=== PATIENT | male | born 1995 | race Caucasian/White ===

== ENCOUNTER 2022-11-06 19:57 | Emergency (ER) | payer SELFPAY ==
[2022-11-06 20:03] VITALS: BP 128/77; PULSE 68; RESP 18; TEMP 36.6; O2SAT 98; BMI 30.6
--- NOTE | 2022-11-06 20:12 | ED.GENADUL1 ---
HPI - General Adult General Chief complaint: Head Injury Stated complaint: head injury Time Seen by Provider: 11/06/22 20:06 Source: patient and family Mode of arrival: walk-in Limitations: no limitations Related Data Home Medications Medication Instructions Recorded Confirmed No Known Home Medications 11/06/22 11/06/22 Allergies Allergy/AdvReac Type Severity Reaction Status Date / Time No Known Drug Allergies Allergy Verified 11/06/22 20:07 Exam Constitutional Vital Signs - 24 hr 11/06/22 20:03 Temperature 98 F Pulse Rate [Monitor] 68 Respiratory Rate 18 Blood Pressure [Right Arm] 128/77 H Pulse Oximetry 98 Oxygen Delivery Method Room Air Course Vital Signs Vital signs: Vital Signs Temperature 98 F 11/06/22 20:03 Pulse Rate 68 11/06/22 20:03 Respiratory Rate 18 11/06/22 20:03 Blood Pressure 128/77 H 11/06/22 20:03 Pulse Oximetry 98 11/06/22 20:03 Oxygen Delivery Method Room Air 11/06/22 20:03 Temperature 98 F 11/06/22 20:03 Pulse Rate 68 11/06/22 20:03 Respiratory Rate 18 11/06/22 20:03 Blood Pressure 128/77 H 11/06/22 20:03 Pulse Oximetry 98 11/06/22 20:03 Oxygen Delivery Method Room Air 11/06/22 20:03 Discharge Plan Discharge Chief Complaint: Head Injury Prescriptions / Home Meds: No Action No Known Home Medications Referrals: Physician,Non-Staff, [Primary Care Provider] - 1 week
--- NOTE | 2022-11-06 20:44 | ED_ITS ---
HPI - Head Injury General Chief complaint: Head Injury Stated complaint: head injury Time Seen by Provider: 11/06/22 20:06 Source: patient and family Mode of arrival: walk-in Limitations: no limitations History of Present Illness HPI Narrative: cc - head injury Patient stood up and hit the corner of a cabinet door with the crown of his head. No LOC but he was dazed for a second afterward. No vomiting or seizure activity. he has a small cut to the scalp. Related Data Home Medications Medication Instructions Recorded Confirmed No Known Home Medications 11/06/22 11/06/22 Allergies Allergy/AdvReac Type Severity Reaction Status Date / Time No Known Drug Allergies Allergy Verified 11/06/22 20:07 Exam Narrative Exam Narrative: Nurses note and vital signs reviewed and patient is not hypoxic. afebrile General: The patient appears well and in no apparent distress. Patient is resting comfortably on cart. GCS = 15. Skin: Warm, dry, no pallor noted. Head: Irregular 6mm laceration to the top of the scalp. Oozing without vigorous bleeding. No palpable skull fracture. Remainder of the face and scalp are normocephalic, atraumatic Neck: Supple, trachea mid-line. Full ROM and no cervical spinal tenderness. Eyes: PERRLA, EOMI ENT: TMs clear, no hemotympanum detected, no blood in posterior oropharynx Cardiovascular: Regular Rate and Rhythm Respiratory: Patient is in no distress, no accessory muscle use, lungs are clear to auscultation, no wheezing, rales or rhonchi Back: No thoracic or lumbar tenderness to palpation. 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 Psychiatric: Cooperative Constitutional Vital Signs - 24 hr 11/06/22 20:03 Temperature 98 F Pulse Rate [Monitor] 68 Respiratory Rate 18 Blood Pressure [Right Arm] 128/77 H Pulse Oximetry 98 Oxygen Delivery Method Room Air Course Vital Signs Vital signs: Vital Signs Temperature 98 F 11/06/22 20:03 Pulse Rate 68 11/06/22 20:03 Respiratory Rate 18 11/06/22 20:03 Blood Pressure 128/77 H 11/06/22 20:03 Pulse Oximetry 98 11/06/22 20:03 Oxygen Delivery Method Room Air 11/06/22 20:03 Temperature 98 F 11/06/22 20:03 Pulse Rate 68 11/06/22 20:03 Respiratory Rate 18 11/06/22 20:03 Blood Pressure 128/77 H 11/06/22 20:03 Pulse Oximetry 98 11/06/22 20:03 Oxygen Delivery Method Room Air 11/06/22 20:03 MDM - Head Injury MDM Narrative Medical decision making narrative: he does not meet criteria for head CT. see MIPS criteria for head injury and head CT Discharge Plan Discharge Chief Complaint: Head Injury Clinical Impression: Closed head injury Patient Disposition: Home, Self-Care Time of Disposition Decision: 20:31 Prescriptions / Home Meds: No Action No Known Home Medications Instructions: Head Injury (ED) Stand Alone Forms: Portal Instructions Referrals: Physician,Non-Staff, MD [Primary Care Provider] - 1 week (staple out in one week) Procedures ED Procedure Instructions Procedures Procedures: the patient did not want to be anesthetized with lidocaine for a single staple to his scalp. So therefore I applied a sterile staple to close the scalp wound. The patient tolerated well.
== END 2022-11-06 20:57 | disposition home or self-care (01) ==
PROVIDERS: Emergency Provider Emergency Medicine
DX: S01.01XA Laceration without foreign body of scalp, initial encounter (principal); S09.8XXA Other specified injuries of head, initial encounter; W22.8XXA Striking against or struck by other objects, initial encounter
CPT/HCPCS: 12001; 99282